=== PATIENT | female | born 1995 | race Hispanic/Latino ===

== ENCOUNTER 2022-03-09 20:51 | Emergency (ER) | payer OTHER ==
[~2022-03-09] VITALS: Ht 157.5 cm; Wt 54.4 kg
[2022-03-09 21:24] VITALS: BP 128/64
[2022-03-14 15:14] LABS: TYPHUS FEVER IGG <1:64 (Neg:<1:64); TYPHUS FEVER IGM <1:64 (Neg:<1:64)
== END 2022-03-09 21:31 | disposition home or self-care (01) ==
LOC: EDH 20:51
DX: Z20.7 Contact with and (suspected) exposure to pediculosis, acariasis and other infestations (principal); R21 Rash and other nonspecific skin eruption
CPT/HCPCS: 36415; 86757; 99281

== ENCOUNTER 2022-12-22 00:56 | Emergency (ER) | payer OTHER | END 2022-12-22 00:59 | disposition left against medical advice (07) | LOC: EDH 00:56 | DX: R68.89 Other general symptoms and signs (principal); Z53.21 Procedure and treatment not carried out due to patient leaving prior to being seen by health care provider ==

== ENCOUNTER 2022-12-22 01:02 | Emergency (ER) | payer OTHER ==
[~2022-12-22] VITALS: Ht 157.5 cm; Wt 58.5 kg
[2022-12-22 02:17] VITALS: BP 120/80
[2022-12-22] MEDS ORDERED: DIPH,PERTUSS(ACELL),TET VAC/PF 0.5 ML VIAL IM ONE (04:00)
[2022-12-22] MEDS ORDERED: TETANUS/DIPHTHERIA TOXOID [ADULT] 0.5 ML VIAL IM ONE (04:00)
[2022-12-22 04:13] LABS: BASOPHILS % (AUTO) 0.4 % (0.0-5.0); EOSINOPHILS % (AUTO) 0.1 % (0.0-8.0); HEMATOCRIT 44.9 % (36-48); LYMPHOCYTES % (AUTO) 21.8 % (21.0-51.0); MEAN CORPUSCULAR HEMOGLOBIN 30.2 pg (27.0-33.0); MEAN CORPUSCULAR HGB CONC 33.4 g/dL (32.0-36.0); MEAN CORPUSCULAR VOLUME 90.5 fL (79-99); MONOCYTES % (AUTO) 7.2 % (3.0-13.0); NEUTROPHILS % (AUTO) 70.1 % (40.0-77.0); PLATELET COUNT (AUTO) 178 K/uL (130-400); RED BLOOD CELL COUNT(AUTO) 4.96 MIL/uL (4.00-5.50); RED CELL DISTRIBUTION WIDTH 12.9 % (11.0-15.5); WHITE BLOOD COUNT (AUTO) 15.8 K/uL (4.8-10.8)
[2022-12-22 04:25] LABS: CREATININE 0.8 mg/dL (0.5-1.5); POTASSIUM 3.8 mmol/L (3.5-5.1)
[2022-12-22 04:28] LABS: ALBUMIN 3.7 g/dL (3.5-5.0)
== END 2022-12-22 06:21 | disposition left against medical advice (07) ==
LOC: EDH 01:06
DX: S01.112A Laceration without foreign body of left eyelid and periocular area, initial encounter (principal); S09.8XXA Other specified injuries of head, initial encounter; F10.129 Alcohol abuse with intoxication, unspecified; X58.XXXA Exposure to other specified factors, initial encounter; Y93.89 Activity, other specified; Y92.89 Other specified places as the place of occurrence of the external cause; Y99.8 Other external cause status
CPT/HCPCS: 36415; 80053; 85025; 90471; 90714; 90715